=== PATIENT | male | born 1990 | race Caucasian/White ===

== ENCOUNTER 2020-06-27 18:04 | Emergency (ER) | payer SELFPAY ==
--- NOTE | 2020-06-27 18:18 | ED.GENADULT ---
HPI - General Adult General Chief complaint: Urogenital-Male Stated complaint: uti Time Seen by Provider: 06/27/20 18:18 Source: patient and RN notes reviewed Mode of arrival: ambulatory Limitations: no limitations History of Present Illness HPI narrative: 30 year old male who presents to [facility] care with complaints of one week duration of burning with urination and penile pain. Patient states that he had been seeing a hormone clinic in and was receiving testosterone and he also received a Priapus injection in July but has not been able to continue treatment due to loosing his insurance. Patient states that he has no concern for STD's being involved in his symptoms, denies any penis drainage. He also states that he sometimes has a feeling like there is a bulge on the right side of his anus. Patient denies any acute pain or swelling to his testicles with some discomfort under his testicles.. MD complaint: burning with urination Onset (ago): week(s) (1) Location: genitals and buttocks Radiation: non-radiation Severity: mild Severity scale (1-10): 4 Quality: burning and aching Pain Consistency: colicky Relieving factors: none Exacerbating factors: none Associated symptoms: denies other symptoms Treatments prior to arrival: none Related Data Allergies Allergy/AdvReac Type Severity Reaction Status Date / Time No Known Allergies Allergy Verified 06/27/20 18:28 Review of Systems Review of Systems: Narrative: CONSTITUTIONAL: Denies fever, chills, or sweats. EYES: Denies visual changes, redness, or discharge. ENT: Denies rhinorrhea, congestion, sore throat, or otalgia. CARDIOVASCULAR: Denies chest pain, palpitations, or edema. RESPIRATORY: Denies cough or dyspnea. GASTROINTESTINAL: Denies abdominal pain, nausea, vomiting, or diarrhea. GENITOURINARY: Positive burning with urination and discomfort in area underneath shaft of penis,and underside of testicles with no acute swelling of testes or acute pain. SKIN: Denies rash or itching. MUSCULOSKELETAL: Denies back pain, joint pain, or myalgia. NEUROLOGIC: Denies headache, numbness, or weakness. PSYCHIATRIC:History of anxiety or depression. All systems reviewed & are unremarkable except as noted in HPI and below PMFSH Past Medical History Medical History (Updated 06/27/20 @ 19:20 by Rocío Smith NP) Anxiety and depression Erectile dysfunction Family History Family History Mother Patient's mother is in good health Father Patient's father is in good health Social History Social History (Updated 06/27/20 @ 19:02 by Rocío Smith NP) Smoking status: Never smoker Second hand tobacco smoke exposure: No Alcohol intake: current Substance use type: marijuana Living arrangements: with friend(s) Gender identity (if verbalized by the patient): Male Comments At time of signature, agree with nursing past medical, surgical, social and family history. There is no relevant family history pertinent to the presenting complaint Exam Narrative: Exam Narrative: GENERAL: Well-appearing, well-nourished, and in no acute distress. HEAD: Normocephalic, atraumatic. EYES: PERRLA and EOMI. ENT: Nares clear, no rhinorrhea or epistaxis. Mucous membranes moist. NECK: Supple.no lymphadenopathy CHEST: Clear to auscultation. No respiratory distress. HEART: Regular rate and rhythm. No murmur heard. Normal peripheral pulses. ABDOMEN: Soft, nontender, nondistended, normal active bowel sounds. On examination patient reports pain to shaft of penis and under neath testes, no swelling or acute discomfort to testes on examination. No masses or hemorrhoids noted on rectal exam, no induration of tissue or ulceration around anus or any swelling of prostate. EXTREMITIES: Normal range of motion. No edema. SKIN: Warm, dry, no rash. NEURO: No focal deficits. Alert and oriented x3. Course Vital Signs Vital signs: Vital Signs T
[2020-06-27 18:22] VITALS: BP 140/86; PULSE 89; RESP 20; TEMP 36.9; O2SAT 100
[2020-06-27 18:27] VITALS: BP 140/86; PULSE 89; RESP 20; TEMP 36.9; O2SAT 100
== END 2020-06-27 18:46 | disposition home or self-care (01) ==
PROVIDERS: Emergency Provider Registered Nurse
DX: N45.1 Epididymitis (principal)
CPT/HCPCS: 81003; 99213; G0463

== ENCOUNTER 2021-05-26 14:26 | Outpatient (CLI) | payer BC, SELFPAY ==
--- NOTE | 2021-05-26 14:35 | ECG_ITS ---
Measurements Intervals [place] Rate: 75 P: 13 [place]: 168 QRS: 73 QRSD: 108 T: 33 QT: 362 QTc: 407 Interpretive Statements SINUS RHYTHM FREQUENT ATRIAL PREMATURE COMPLEXES ABNORMAL ECG Electronically Signed On 05-26-2021 15:26:30 [employer] by Tereso Jameson D.O.
== END 2021-05-26 14:27 | disposition home or self-care (01) ==
LOC: ANHCARD 14:29
PROVIDERS: PCP Physician Assistant; Visit Provider Physician Assistant
DX: R00.2 Palpitations (principal); R07.9 Chest pain, unspecified; R94.31 Abnormal electrocardiogram [ECG] [EKG]
CPT/HCPCS: 93005

== ENCOUNTER 2021-05-30 14:34 | Outpatient (CLI) | payer BC, SELFPAY ==
--- NOTE | 2021-06-03 12:54 | WPDHOLTEREM ---
Holter/Event Monitor Holter/Event Monitor Date of procedure: 05/30/21 Holter/Event Procedure: 48 Hr Holter Monitor Indications: Palpitations Conclusion: 1. 48 hour holter monitor on 05/30/21. 2. Underlying rhythm is sinus rhythm. HR range 39-141 bpm; average HR 78 bpm. 3. There are 1,893 premature supraventricular complexes, 19 supraventricular couplets, 12 supraventricular bigeminy, and 25 supraventricular trigeminy. No supraventricular tachycardia. 4. There are 6 premature ventricular complexes. No ventricular tachycardia. 5. No sinoatrial or atrioventricular blocks. No significant pauses greater than 2 seconds. 6. Patient reports symptoms of chest pain, pounding heart rate, fluttering, skipped beats which demonstrate sinus rhythm, HR range 63-109 bpm with 5 episodes with PAC's.
== END 2021-05-30 14:35 | disposition home or self-care (01) ==
LOC: ANHCARD 14:35
PROVIDERS: PCP Physician Assistant; Visit Provider Physician Assistant
DX: R00.2 Palpitations (principal)
CPT/HCPCS: 93225; 93226

== ENCOUNTER 2021-06-21 11:45 | Emergency (ER) | payer BC, SELFPAY ==
[2021-06-21 11:47] VITALS: BP 140/84; PULSE 79; RESP 16; TEMP 36.6; O2SAT 97
--- NOTE | 2021-06-21 14:05 | ED.WOUNDLAC ---
HPI - Wound/Laceration General Chief Complaint: Wound/Laceration Stated Complaint: ankle laceration Time Seen by Provider: 06/21/21 13:43 Source: patient Mode of arrival: ambulatory Limitations: no limitations History of Present Illness HPI narrative: Patient presents with a small laceration at the left ankle while trying to open a Chris present, prior to arrival to the emergency room, unknown last tetanus shot, no other injury Related Data Allergies Allergy/AdvReac Type Severity Reaction Status Date / Time No Known Allergies Allergy Verified 06/21/21 11:53 Review of Systems Review of Systems: CONSTITUTIONAL: Denies fever, chills, or sweats. EYES: Denies visual changes, redness, or discharge. ENT: Denies rhinorrhea, congestion, sore throat, or otalgia. CARDIOVASCULAR: Denies chest pain, palpitations, or edema. RESPIRATORY: Denies cough or dyspnea. GASTROINTESTINAL: Denies abdominal pain, nausea, vomiting, or diarrhea. GENITOURINARY: Denies dysuria or hematuria. SKIN: Denies rash or itching. MUSCULOSKELETAL: Denies back pain, joint pain, or myalgia. NEUROLOGIC: Denies headache, numbness, or weakness. PSYCHIATRIC: Denies anxiety or depression. [facility] Past Medical History Medical History Anxiety and depression Erectile dysfunction Family History Family History Mother Patient's mother is in good health Father Patient's father is in good health Social History Social History Smoking status: Never smoker Second hand tobacco smoke exposure: No Alcohol intake: current Substance use type: marijuana Gender identity (if verbalized by the patient): Male Exam Narrative: General appearance: Well-developed, well-nourished Skin: 1 cm laceration medial malleolus left ankle, subcutaneous Head: Normocephalic, nontraumatic Eyes: Clear conjunctiva ENT: Oropharynx normal, ears normal, nose normal Neck: Supple, nontender Chest and respiratory: Airway patent, no respiratory distress, no accessory muscle use Heart: Regular rate/rhythm Abdomen: Soft, nontender, no organomegaly, quiet bowel sounds Vascular: Normal peripheral pulses, normal capillary refill. Musculoskeletal: Normal range of motion, nontender back Neurologic: Alert and oriented ?3, [facility] NURSE is normal as tested, no gross motor deficit Course Course Emergency Course: Improving Vital Signs Vital signs: Vital Signs Temperature 36.6 C 06/21/21 11:47 Pulse Rate 79 06/21/21 11:47 Respiratory Rate 16 06/21/21 11:47 Blood Pressure 140/84 06/21/21 11:47 Pulse Oximetry 97 06/21/21 11:47 Temperature 36.6 C 06/21/21 11:47 Pulse Rate 79 06/21/21 11:47 Respiratory Rate 16 06/21/21 11:47 Blood Pressure 140/84 06/21/21 11:47 Pulse Oximetry 97 06/21/21 11:47 Procedures Laceration Laceration 1: Date: 06/21/21 Time: 14:09 Site: lower extremity Side (If applicable): left (Medial malleolus) Size (cm): 1 Description: linear Depth: simple, single layer Local Anesthetic: lidocaine 1% and with epi Amount of anesthesia used (mL): 2 ====== Skin Level ====== Skin layer closed with: nylon Size (cm): 5-0 and 6-0 Number of sutures: 3 Technique: simple, interrupted ====== Subcutaneous Layer ====== ====== Muscle Layer ====== ====== Tendon Layer ====== MDM - Wound/Laceration MDM Narrative Medical decision making narrative: Ankle laceration Critical Care Time Critical Care Time Critical Care Time: No
[2021-06-21] MEDS: TETANUS,DIPHTHERIA,AC PERTUSSIS ADULT (0.5 ML) BOOSTRIX IM (14:14)
== END 2021-06-21 14:44 | disposition home or self-care (01) ==
PROVIDERS: Emergency Provider Emergency Medicine; PCP Physician Assistant
DX: S91.012A Laceration without foreign body, left ankle, initial encounter (principal); Z23 Encounter for immunization; W45.8XXA Other foreign body or object entering through skin, initial encounter
CPT/HCPCS: 12001; 90471; 90715; 99282

== ENCOUNTER 2021-10-13 07:40 | Outpatient (CLI) | payer BC, SELFPAY ==
--- NOTE | 2021-10-15 15:07 | WPDHOMESLEEP ---
Sleep Study - Home Unattended Date of Study: 10/13/21 Ordering Provider: Ever Velasquez PA-C Interpreting Provider: Heather Clarke, DO Home Sleep Study Type: Apnea Link Air Height: 1.88 m Weight: 90.718 kg Body Mass Index: 25.7 Neck Circumference (inches): 18 [place]: 3 Reason for Sleep Study Previous diagnosis of THALIA. Not currently being treated Sleep History The patient is a 31-year-old male with anxiety, depression, erectile dysfunction, GERD and previously diagnosed sleep that had a home sleep test ordered by his primary care. The patient had a home sleep test on April 11, 2019 that showed an AHI 17.2 with 83% of his apneas being central. The patient was recommended to have a Pap titration study. 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 He will have sporadic movements or muscle spasms while sleeping. He also states he is unable to stay asleep throughout the night. He is currently taking melatonin. He denies awakening from sleep short of breath. He occasionally awakens at night with heartburn, belching or cough. He frequently snores loud enough that others complain. He constantly has trouble sleeping when he has a cold. He denies waking up gasping for air throughout the night. He occasionally has breathing problems at night observed by himself or others. He rarely sweats excessively at night. He occasionally has heart palpitations or irregular heartbeats during the night. He constantly falls asleep during the day and occasionally falls asleep while driving. He occasionally has trouble at work due to sleepiness. He denies sleep paralysis, cataplexy and hypnagogic / hypnopompic hallucinations he rarely has nightmares. He rarely remembers his dreams. He constantly has thoughts racing through his mind. He frequently feels sad or depressed. He constantly has anxiety. He constantly has muscular tension. He constantly notices parts of his body jerk. He frequently kicks during the night. He constantly has crawling and aching feelings in his legs but denies leg pain during the night. He occasionally grinds her teeth during sleep and constantly awakens with a morning jaw pain. He is rarely bothered by pain during the day but never awakened by pain during the night. He occasionally wakes up feeling stiff in the morning with sore or achy muscles. He occasionally wakes up with pain in the neck, spine and other joints. He goes to bed at 10:30 p.m. on both weekdays and weekends. It takes him 5 minutes to fall asleep. He will wake up once throughout the night to urinate and a few other times to shift position in bed. He is able to fall asleep immediately. He wakes up at 7:00 a.m. on both weekdays and weekends. He does not stay in bed after waking up in the morning. He currently lives with his girlfriend. He does not consume any caffeinated beverages within 2 bedtime. He does not engage in physical exercise before bedtime. He will watch television before falling asleep. He will occasionally take naps in the afternoon or the evening and is occasionally refreshing. He drinks 1-2 caffeinated beverages per day. He will drink 1-2 alcoholic beverages per day. He will vape occasionally. He does smoke marijuana occasionally. PMF Past Medical History Medical History Anxiety and depression Erectile dysfunction Nausea Surgical History Surgical History H/O sinus surgery Family History Family History Mother Patient's mother is in good health Father Patient's father is in good health Social History Social History Smoking status: Current every day smoker Second hand tobacco smoke exposure: No Alcohol intake: current Alcohol use details: social Substance use type: marijuana Gen
[2021-10-15 15:22] VITALS: BMI 25.7
--- NOTE | 2023-02-03 13:21 | SLEEP ---
new calls [id number]
== END 2021-10-14 12:19 | disposition home or self-care (01) ==
LOC: ANHCSM 07:41
PROVIDERS: PCP Physician Assistant; Visit Provider Physician Assistant
DX: G47.33 Obstructive sleep apnea (adult) (pediatric) (principal); G47.10 Hypersomnia, unspecified
CPT/HCPCS: 95806

== ENCOUNTER 2021-10-29 06:49 | Outpatient (CLI) | payer BC, SELFPAY ==
--- NOTE | 2021-11-04 15:28 | WPDSLEEPSTUD ---
Sleep Study Date of Study: 10/29/21 Ordering Provider: Ever Velasquez PA-C Interpreting Physician: Guera Javed MD Sleep Study Type: CPAP Titration Height: 1.88 m Weight: 98.43 kg Body Mass Index: 27.8 Neck Circumference (inches): 15.5 [place]: 3 Reason for Sleep Study * 10/15/2021 Home Sleep Apnea Test using ApneaLink with AHI 9.0, central apnea index 3.7. He presents for a full night titration. Echo results are pending. Sleep History The patient is a 31-year-old male with anxiety, depression, erectile dysfunction, GERD and previously diagnosed sleep that had a home sleep test ordered by his primary care. The patient had a home sleep test on April 11, 2019 that showed an AHI 17.2 with 83% of his apneas being central. The patient was recommended to have a Pap titration study. 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 He will have sporadic movements or muscle spasms while sleeping. He also states he is unable to stay asleep throughout the night. He is currently taking melatonin. He denies awakening from sleep short of breath. He occasionally awakens at night with heartburn, belching or cough. He frequently snores loud enough that others complain. He constantly has trouble sleeping when he has a cold. He denies waking up gasping for air throughout the night. He occasionally has breathing problems at night observed by himself or others. He rarely sweats excessively at night. He occasionally has heart palpitations or irregular heartbeats during the night. He constantly falls asleep during the day and occasionally falls asleep while driving. He occasionally has trouble at work due to sleepiness. He denies sleep paralysis, cataplexy and hypnagogic / hypnopompic hallucinations he rarely has nightmares. He rarely remembers his dreams. He constantly has thoughts racing through his mind. He frequently feels sad or depressed. He constantly has anxiety. He constantly has muscular tension. He constantly notices parts of his body jerk. He frequently kicks during the night. He constantly has crawling and aching feelings in his legs but denies leg pain during the night. He occasionally grinds her teeth during sleep and constantly awakens with a morning jaw pain. He is rarely bothered by pain during the day but never awakened by pain during the night. He occasionally wakes up feeling stiff in the morning with sore or achy muscles. He occasionally wakes up with pain in the neck, spine and other joints. He goes to bed at 10:30 p.m. on both weekdays and weekends. It takes him 5 minutes to fall asleep. He will wake up once throughout the night to urinate and a few other times to shift position in bed. He is able to fall asleep immediately. He wakes up at 7:00 a.m. on both weekdays and weekends. He does not stay in bed after waking up in the morning. He currently lives with his girlfriend. He does not consume any caffeinated beverages within 2 bedtime. He does not engage in physical exercise before bedtime. He will watch television before falling asleep. He will occasionally take naps in the afternoon or the evening and is occasionally refreshing. He drinks 1-2 caffeinated beverages per day. He will drink 1-2 alcoholic beverages per day. He will vape occasionally. He does smoke marijuana occasionally. [facility] Past Medical History Medical History (Updated 11/04/21 @ 16:06 by Guera Javed MD) Anxiety and depression Erectile dysfunction Nausea THALIA (obstructive sleep apnea) Surgical History Surgical History H/O sinus surgery Family History Family History Mother Patient's mother is in good health Father Patient's father is in good health Social History Social History Smoking status: Current every day smoker Second hand tobacco smoke exposure: No A
[2021-11-04 16:11] VITALS: BMI 27.8
== END 2021-10-30 07:01 | disposition home or self-care (01) ==
PROVIDERS: PCP Physician Assistant; Visit Provider Physician Assistant
DX: G47.33 Obstructive sleep apnea (adult) (pediatric) (principal); G25.81 Restless legs syndrome
CPT/HCPCS: 95811

== ENCOUNTER 2025-02-13 07:07 | Outpatient (CLI) | payer OTHER, SELFPAY ==
[2025-02-13 07:52] LABS: Hematocrit 42.4 % (42.0-52.0); Hemoglobin 13.6 g/dL (14.0-18.0); Immature Granulocyte Percent A 0.3 % (0-0.5); Lymphocytes Absolute Auto 2.66 K/mm3 (0.9-3.2); Mean Corpuscular HGB Conc 32.1 g/dl (32-36); Mean Corpuscular Hemoglobin 29.4 pg (26-34); Mean Corpuscular Volume 91.6 fl (80-100); Nucleated Red Blood Cells Absolute Auto 0.000 K/mm3 (0.0-0.012); Nucleated Red Blood Cells Perc 0.0 % (0.0-0.2); Platelet Count Result 214 k/mm3 (150-375); Red Blood Count 4.63 M/mm3 (4.6-6.20); White Blood Count 5.9 K/mm3 (4.5-10.0)
[2025-02-13 08:16] LABS: Alanine Aminotransferase 23 U/L (6-50); Albumin Level 4.3 g/dL (3.5-5.1); Alkaline Phosphatase 82 U/L (38-126); Anion Gap 5 mmol/L (4-12); Aspartate Amino Transferase 26 U/L (17-59); Bilirubin,Total < 0.1 mg/dL (0.2-1.3); Blood Urea Nitrogen 13 mg/dL (9-20); Calcium 8.9 mg/dL (8.4-10.2); Carbon Dioxide 29 mmol/L (22-30); Chloride 105 mmol/L (98-107); Cholesterol 200 mg/dL (0-200); Estimated Glomerular Filt Rate > 60; Glucose 103 mg/dL (65-110); HDL Direct 53 mg/dL; Potassium 4.3 mmol/L (3.4-5.0); Sodium 139 mmol/L (137-145); Total Protein 7.4 g/dL (6.3-8.2); Triglycerides 107 mg/dL (<150)
[2025-02-13 08:48] LABS: Thyroid Stimulating Hormone 1.320 uIU/mL (0.465-4.680)
[2025-02-19 00:07] LABS: Free Testosterone (Direct) 6.0 pg/mL (8.7-25.1)
== END 2025-02-13 07:08 | disposition home or self-care (01) ==
LOC: ANHLAB 07:08
PROVIDERS: PCP Internal Medicine; Visit Provider Internal Medicine
DX: E55.9 Vitamin D deficiency, unspecified (principal); R53.83 Other fatigue; E29.1 Testicular hypofunction
CPT/HCPCS: 36415; 80053; 80061; 82306; 84402; 84403; 84443; 85025

== ENCOUNTER 2025-03-16 07:12 | Outpatient (CLI) | payer OTHER, SELFPAY ==
[2025-03-17 07:09] LABS: FSH 2.5 mIU/mL (1.5-12.4); LH 4.4 mIU/mL (1.7-8.6)
[2025-03-22 21:07] LABS: Free Testosterone (Direct) 8.3 pg/mL (8.7-25.1)
== END 2025-03-16 07:13 | disposition home or self-care (01) ==
LOC: ANHLAB 07:12
PROVIDERS: PCP Internal Medicine; Visit Provider Internal Medicine
DX: R79.89 Other specified abnormal findings of blood chemistry (principal); E29.1 Testicular hypofunction
CPT/HCPCS: 83001; 83002; 84402; 84403